=== PATIENT | female | born 1970 | race Caucasian/White ===

== ENCOUNTER 2022-11-20 07:33 | Outpatient (CLI) | payer OTHER, SELFPAY ==
[2022-11-20 12:28] LABS: Albumin* 4.6 g/dL (3.3-5.0)
[2022-11-20 12:29] LABS: Chloride* 105 mmol/L (96-114); Potassium* 4.4 mmol/L (3.6-5.1); Sodium* 142 mmol/L (135-149)
[2022-11-20 12:31] LABS: Bilirubin Total* 0.8 mg/dL (0.1-1.5); Carbon Dioxide* 29 mmol/L (20-32); Cholesterol* 210 mg/dL (90-199); Creatinine* 0.7 mg/dL (0.5-1.5); Estimated Glomerular Filt Rate 103 ml/min; Total Protein* 7.8 g/dL (6.0-8.3)
[2022-11-20 12:32] LABS: Alanine Aminotransferase* 31 U/L (4-35); Alkaline Phosphatase* 76 U/L (40-150); Aspartate Amino Transferase* 24 U/L (12-35); Blood Urea Nitrogen* 26 mg/dL (7-30); Calcium* 9.6 mg/dL (8.4-10.6); Glucose* 103 mg/dL (60-115); HDL Cholesterol* 67 mg/dL (>=50); LDL Cholesterol Calculated 128 mg/dL (<100); Triglycerides* 75 mg/dL (40-149)
[2022-11-20 15:14] LABS: Free T4 Free Thyroxine* 1.02 ng/dL (0.70-1.85)
== END 2022-11-20 07:34 | disposition home or self-care (01) ==
LOC: FRMREF 08:03
PROVIDERS: PCP Physician Assistant Medical; Visit Provider Physician Assistant Medical
DX: E78.5 Hyperlipidemia, unspecified (principal); E03.8 Other specified hypothyroidism
CPT/HCPCS: 80053; 80061; 84439; 84443

== ENCOUNTER 2023-02-14 09:02 | Outpatient (CLI) | payer OTHER, SELFPAY ==
--- NOTE | 2023-02-14 09:15 | CRLHL7_ITS ---
For Patients: As a result of the Century Cures Act, medical imaging exams and procedure reports are released immediately into your electronic medical record. You may view this report before your referring provider. If you have questions, please contact your health care provider. BILATERAL SCREENING MAMMOGRAM WITH COMPUTER-AIDED DETECTION AND TOMOSYNTHESIS TECHNIQUE: CC and MLO views were obtained. These mammographic images have been obtained using full-field digital technique. These mammographic images were interpreted with the benefit of computer-aided detection. Breast Tomosynthesis was used in this interpretation. COMPARISON FILM: 01/07/22, 12/01/20, 11/18/19 FINDINGS: There are scattered areas of fibroglandular density IMPRESSION: There is no radiographic evidence for malignancy. ASSESSMENT: BI-RADS Category 2: Benign RECOMMENDATION: Routine screening mammogram in 1 year. A lay language report of this examination will be provided to the patient. Jose Maria Montiel M.D. Diagnostic Radiologist [email or web address] Transcribed: 3:34 pm DW/Dictated by: Jose Maria Montiel MD @ 02/14/2023 12:30:00 PM (Electronically Signed)
== END 2023-02-14 09:03 | disposition home or self-care (01) ==
LOC: MAMMO 09:04
PROVIDERS: PCP Physician Assistant Medical; Visit Provider Obstetrics & Gynecology
DX: Z12.31 Encounter for screening mammogram for malignant neoplasm of breast (principal)
CPT/HCPCS: 77063; 77067

== ENCOUNTER 2023-05-07 08:58 | Outpatient (CLI) | payer OTHER, SELFPAY | END 2023-05-07 08:59 | disposition home or self-care (01) | PROVIDERS: PCP Physician Assistant Medical; Visit Provider Obstetrics & Gynecology | DX: Z01.419 Encounter for gynecological examination (general) (routine) without abnormal findings (principal); E03.8 Other specified hypothyroidism | CPT/HCPCS: 84443 ==

== ENCOUNTER 2023-06-06 07:50 | Outpatient (CLI) | payer OTHER, SELFPAY | END 2023-06-06 07:51 | disposition home or self-care (01) | LOC: NFLDREF 06-07 09:41 | PROVIDERS: PCP Physician Assistant Medical; Referring Provider Physician Assistant Medical; Visit Provider Physician Assistant Medical | DX: E03.8 Other specified hypothyroidism (principal); E78.5 Hyperlipidemia, unspecified | CPT/HCPCS: 80061; 84443; 84450; 84460 ==

== ENCOUNTER 2023-12-25 08:45 | Outpatient (CLI) | payer OTHER, SELFPAY | END 2023-12-25 08:46 | disposition home or self-care (01) | LOC: NFLDREF 01-08 11:15 | PROVIDERS: PCP Physician Assistant Medical; Referring Provider Physician Assistant Medical; Visit Provider Physician Assistant Medical | DX: E03.8 Other specified hypothyroidism (principal); E78.2 Mixed hyperlipidemia | CPT/HCPCS: 80053; 80061; 84443 ==

== ENCOUNTER 2024-02-27 10:10 | Outpatient (CLI) | payer OTHER, SELFPAY ==
--- NOTE | 2024-02-27 10:15 | MM_ITS ---
Patient: DANIEL HEWITT Facility:?[facility] Patient ID:?[id number] Site Patient ID:?[id number]. Site :?[id number] Study:?XRay-Breast Bilateral 3D W/CAD-02/27/2024 11:12:15 AM Ordering Physician:?Milan Final Report: BILATERAL SCREENING MAMMOGRAM WITH COMPUTER-AIDED DETECTION AND TOMOSYNTHESIS TECHNIQUE: CC and MLO views were obtained. These mammographic images have been obtained using full-field digital technique. These mammographic images were interpreted with the benefit of computer-aided detection. Breast Tomosynthesis was used in this interpretation. COMPARISON FILM: 02/14/23, 01/07/22, 12/01/20. FINDINGS: The breasts are heterogeneously dense, which may obscure small masses. IMPRESSION: There is no radiographic evidence for malignancy. ASSESSMENT: BI-RADS Category 2: Benign RECOMMENDATION: Routine screening mammogram in 1 year. A lay language report of this examination will be provided to the patient. Jose Maria Montiel M.D. Diagnostic Radiologist [email or web address] DSM/sp R& Transcribed: 1:45 p.m. SP/Dictated by: Jose Maria Montiel MD @ 02/27/2024 11:43:00 AM Signed by:?Jose Maria Montiel MD @02/27/2024 2:49:40 PM (Electronic Signature)
== END 2024-02-27 10:11 | disposition home or self-care (01) ==
LOC: MAMMO 10:11
PROVIDERS: PCP Physician Assistant Medical; Visit Provider Obstetrics & Gynecology
DX: Z12.31 Encounter for screening mammogram for malignant neoplasm of breast (principal); R92.2 Inconclusive mammogram
CPT/HCPCS: 77063; 77067

== ENCOUNTER 2025-03-14 08:06 | Outpatient (CLI) | payer OTHER, SELFPAY | END 2025-03-14 08:07 | disposition home or self-care (01) | LOC: NFLDREF 03-23 00:46 | PROVIDERS: PCP Physician Assistant Medical; Referring Provider Physician Assistant Medical; Visit Provider Physician Assistant Medical | DX: Z00.01 Encounter for general adult medical examination with abnormal findings (principal); E78.2 Mixed hyperlipidemia; E03.8 Other specified hypothyroidism | CPT/HCPCS: 80053; 80061; 84443 ==

== ENCOUNTER 2025-03-25 10:00 | Outpatient (CLI) | payer OTHER, SELFPAY ==
--- NOTE | 2025-03-25 10:15 | CRLHL7_ITS ---
For Patients: As a result of the Century Cures Act, medical imaging exams and procedure reports are released immediately into your electronic medical record. You may view this report before your referring provider. If you have questions, please contact your health care provider. INDICATION: BILATERAL SCREENING MAMMOGRAM, ASYMPTOMATIC 54 Y/O FEMALE COMPARISON: 02/27/2024, 02/14/2023, 01/07/2022 TECHNIQUE: Digital mammogram in CC and MLO projections including computer-aided detection (CAD) and tomosynthesis. BREAST COMPOSITION: There are scattered areas of fibroglandular density. FINDINGS: No suspicious findings. ASSESSMENT: BI-RADS 2 Benign RECOMMENDATION: Annual screening mammogram. A lay language report of this examination will be provided to the patient. Dictated by: Jose Maria Montiel MD @ 03/25/2025 12:27:32 (Electronically Signed)
== END 2025-03-25 10:01 | disposition home or self-care (01) ==
LOC: MAMMO 10:01
PROVIDERS: PCP Physician Assistant Medical; Visit Provider Obstetrics & Gynecology
DX: Z12.31 Encounter for screening mammogram for malignant neoplasm of breast (principal)
CPT/HCPCS: 77063; 77067

== ENCOUNTER 2025-07-14 09:22 | Outpatient (CLI) | payer OTHER, SELFPAY ==
[2025-07-16 08:41] LABS: HPV Source Cervix
[2025-07-19 14:17] LABS: Pap Test Digital Imaging Done
== END 2025-07-14 09:23 | disposition home or self-care (01) ==
PROVIDERS: PCP Physician Assistant Medical; Visit Provider Registered Nurse
DX: Z12.4 Encounter for screening for malignant neoplasm of cervix (principal); Z11.51 Encounter for screening for human papillomavirus (HPV)
CPT/HCPCS: 87624; 87625; 88141; 88142; 88175